=== PATIENT | male | born 1990 | race Caucasian/White ===

== ENCOUNTER 2023-04-13 08:59 | Outpatient (CLI) | payer BC, SELFPAY ==
[2023-04-13 19:00] LABS: Hematocrit 54.1 % (42.0-52.0); Mean Corpuscular HGB Conc 31.4 g/dl (32-36); Platelet Count Result 293 k/mm3 (150-375); Red Blood Count 6.08 M/mm3 (4.6-6.20); Red Cell Distribution Width 13.2 % (11.5-14.5)
[2023-04-13 19:27] LABS: Alanine Aminotransferase 30 U/L (6-50); Albumin Level 4.9 g/dL (3.5-5.1); Alkaline Phosphatase 52 U/L (38-126); Anion Gap 9 mmol/L (8-16); Aspartate Amino Transferase 85 U/L (17-59); Bilirubin,Total 0.8 mg/dL (0.2-1.3); Blood Urea Nitrogen 17 mg/dL (9-20); Calcium 9.5 mg/dL (8.4-10.2); Carbon Dioxide 30 mmol/L (22-30); Chloride 100 mmol/L (98-107); Cholesterol 154 mg/dL (0-200); Estimated Glomerular Filt Rate > 60; Glucose 83 mg/dL (65-110); HDL Direct 38 mg/dL; Potassium 4.7 mmol/L (3.4-5.0); Sodium 139 mmol/L (137-145); Triglycerides 39 mg/dL (<150)
[2023-04-13 19:40] LABS: LDL Cholesterol Direct 91 mg/dL
[2023-04-13 19:47] LABS: Free T4 Free Thyroxine 0.91 ng/mL (0.78-2.19)
[2023-04-16 06:42] LABS: Triiodothyronine T3 Free 3.3 pg/mL (2.3-4.2)
[2023-04-17 11:12] LABS: Testosterone Free 59.4 pg/mL (35.0-155.0); Testosterone Total 391 ng/dL (250-1100)
[2023-04-18 05:05] LABS: Thyroid Peroxidase Antibodies <1 IU/mL (<9)
== END 2023-04-13 09:00 | disposition home or self-care (01) ==
LOC: ANHBWCLAB 09:00
PROVIDERS: PCP Nurse Practitioner Adult Health; Visit Provider Nurse Practitioner Adult Health
DX: L65.9 Nonscarring hair loss, unspecified (principal); Z13.9 Encounter for screening, unspecified
CPT/HCPCS: 36415; 80053; 80061; 84402; 84403; 84439; 84443; 84481; 85027; 86376

== ENCOUNTER 2023-04-20 08:08 | Outpatient (CLI) | payer BC, SELFPAY ==
--- NOTE | ~2023-04-20 | US_ITS ---
EXAMINATION: US thyroid DATE: 04/20/2023 08:39 INDICATION: Nontoxic goiter, unspecified. TECHNIQUE: Multiple ultrasound images of the thyroid were obtained. COMPARISON: None. FINDINGS: The right thyroid lobe measures 5.0 x 1.1 x 1.2 cm. The left thyroid lobe measures 4.5 x 1.6 x 1.4 c m. There is normal echotexture and echogenicity throughout the thyroid gland. No discrete nodules id entified. Normal vascular flow is present. IMPRESSION: 1. Normal thyroid. Reviewed, dictated and finalized at location E. IMPRESSION: 1. Normal thyroid.
== END 2023-04-20 08:09 | disposition home or self-care (01) ==
PROVIDERS: PCP Nurse Practitioner Adult Health; Visit Provider Nurse Practitioner Adult Health
DX: E04.9 Nontoxic goiter, unspecified (principal)
CPT/HCPCS: 76536

== ENCOUNTER 2023-05-18 08:28 | Outpatient (CLI) | payer BC, SELFPAY ==
[2023-05-18 19:22] LABS: Iron 55 ug/dL (49-181)
[2023-05-18 19:33] LABS: Percent Iron Saturation 15 % (20-50)
[2023-05-20 19:33] LABS: ANA Cascade Screen Negative (Negative)
== END 2023-05-18 08:29 | disposition home or self-care (01) ==
LOC: ANHBWCLAB 08:30
PROVIDERS: PCP Nurse Practitioner Adult Health; Visit Provider Nurse Practitioner Adult Health
DX: L65.9 Nonscarring hair loss, unspecified (principal)
CPT/HCPCS: 36415; 82728; 83540; 83550; 86038; 86225; 86235; 86364

== ENCOUNTER 2023-11-17 09:25 | Outpatient (CLI) | payer BC, SELFPAY ==
--- NOTE | ~2023-11-17 | XR_ITS ---
Right foot Technique: AP and lateral views were obtained. Clinical History: Bump under right fourth toe Findings: No acute fracture or dislocation is seen. Osseous alignment is anatomic. Joint spaces are p reserved without erosive or degenerative change. Soft tissues are unremarkable. Impression: Unremarkable right foot radiographs. Reviewed, dictated and finalized at location . Impression: Unremarkable right foot radiographs.
[2023-11-17 19:25] LABS: Basophils Absolute Auto 0.1 K/mm3 (0.0-0.1); Basophils Percent Auto 0.7 % (0.2-1.2); Eosinophils Absolute Auto 0.1 K/mm3 (0-0.3); Eosinophils Percent Auto 1.4 % (0-4.4); Hematocrit 51.3 % (42.0-52.0); Hemoglobin 16.3 g/dL (14.0-18.0); Immature Granulocyte Absolute 0.02 K/mm3 (0.00-0.031); Immature Granulocyte Percent A 0.3 % (0-0.5); Lymphocytes Percent Auto 19.5 % (18.3-44.2); Mean Corpuscular HGB Conc 31.8 g/dl (32-36); Mean Corpuscular Hemoglobin 28.1 pg (26-34); Mean Corpuscular Volume 88.4 fl (80-100); Mean Platelet Volume 10.9 fl (7.4-10.4); Monocytes Absolute Auto 0.7 K/mm3 (0.1-0.6); Monocytes Percent Auto 8.9 % (2.6-8.5); Neutrophils Absolute Auto 5.3 K/mm3 (1.3-6.7); Neutrophils Percent Auto 69.2 % (45.5-73.1); Platelet Count Result 274 k/mm3 (150-375); Red Cell Distribution Width 13.3 % (11.5-14.5); White Blood Count 7.7 K/mm3 (4.5-10.0)
[2023-11-17 20:09] LABS: Iron 56 ug/dL (49-181)
[2023-11-17 20:27] LABS: Alanine Aminotransferase 33 U/L (6-50); Albumin Level 4.6 g/dL (3.5-5.1); Alkaline Phosphatase 56 U/L (38-126); Anion Gap 7 mmol/L (4-12); Aspartate Amino Transferase 73 U/L (17-59); Bilirubin,Total 0.7 mg/dL (0.2-1.3); Blood Urea Nitrogen 19 mg/dL (9-20); Calcium 9.2 mg/dL (8.4-10.2); Carbon Dioxide 29 mmol/L (22-30); Chloride 102 mmol/L (98-107); Estimated Glomerular Filt Rate > 60; Glucose 78 mg/dL (65-110); Potassium 4.4 mmol/L (3.4-5.0); Sodium 138 mmol/L (137-145)
== END 2023-11-17 09:26 | disposition home or self-care (01) ==
LOC: ANHBWCLAB 09:29
PROVIDERS: PCP Nurse Practitioner Adult Health; Visit Provider Nurse Practitioner Adult Health
DX: S90.851A Superficial foreign body, right foot, initial encounter (principal); D64.9 Anemia, unspecified; X58.XXXA Exposure to other specified factors, initial encounter
CPT/HCPCS: 36415; 73620; 80053; 82607; 82728; 83540; 85025

== ENCOUNTER 2024-09-14 15:49 | Emergency (ER) | payer BC, SELFPAY ==
--- NOTE | ~2024-09-14 | XR_ITS ---
EXAMINATION: XR abdomen obstructive series DATE: 09/14/2024 17:04 INDICATION: Left-sided abdominal pain TECHNIQUE: Supine and upright views of the abdomen. FINDINGS: No prior studies for comparison. The visualized lung parenchyma is normal.. There is a bowel gas pattern. Gas and stool are seen throu ghout the colon to the level of the rectum. There is no free air. IMPRESSION: 1. No acute abdominal abnormality. Reviewed, dictated and finalized at location A.
[2024-09-14 15:54] VITALS: BP 128/84; PULSE 93; RESP 20; TEMP 37.6; O2SAT 98
--- NOTE | 2024-09-14 16:09 | ED_ITS ---
HPI - General Adult General Chief complaint: Abdominal Pain Stated complaint: left side pain/chills/diarrhea/nausea Time Seen by Provider: 09/14/24 16:10 Source: patient, RN notes reviewed and old records reviewed Mode of arrival: ambulatory Limitations: no limitations History of Present Illness HPI narrative: 33 year old male presents to [facility] care with complaints of left sided upper abdominal pain for a month and states that since yesterday he has had, chills nausea with vomiting and diarrhea. Patient reports that he has not eaten since yesterday has been drinking some water today. Patient reports that he has felt chilled, flushed, with some body aches also. Patient reports that he has no acute abdominal pain just aching type of sensation to left side of his abdomen. He reports that he has an appointment with his PCP next week. MD complaint: left sided abdominal discomfort,nausea, vomiting diarrhea, chills fevers Onset (ago): day(s) (day 2 of symptoms) Severity: moderate Severity scale (1-10): 7 Quality: aching Pain Consistency: intermittent Treatments prior to arrival: none Related Data Allergies Allergy/AdvReac Type Severity Reaction Status Date / Time morphine Allergy Unknown unknown Verified 09/14/24 16:20 Review of Systems Review of Systems: CONSTITUTIONAL: reports fever, chills, or sweats. EYES: Denies visual changes, redness, or discharge. ENT: Denies rhinorrhea, congestion, sore throat, or otalgia. CARDIOVASCULAR: Denies chest pain, palpitations, or edema. RESPIRATORY: Denies cough or dyspnea. GASTROINTESTINAL:reports left mid abdominal pain, nausea, vomiting, and diarrhea. GENITOURINARY: Denies dysuria or hematuria. SKIN: Denies rash or itching. MUSCULOSKELETAL: Denies back pain, joint pain, positive for body aches NEUROLOGIC: Denies headache, numbness, states feels weak PSYCHIATRIC: Denies anxiety or depression. All systems reviewed & are unremarkable except as noted in HPI and below PMFSH Past Medical History Medical History (Updated 09/17/24 @ 11:29 by Janine Paulino NP) Anemia Family History Family History (Updated 04/13/23 @ 08:27 by Tiffanie Flower MA) Mother Asthma Depression History of ETOH abuse Grandparent Diabetes mellitus Social History Social History (Updated 09/17/24 @ 11:31 by Janine Paulino NP) Smoking status: Former smoker Alcohol intake: former Substance use: current Substance use type: marijuana Last use: former pain pill abuse clean since 2014 Lack of Transportation: No Lack of Food: Never True Current Housing: I Have Housing Concerned About Future Housing: No Difficulty Paying Gas/Electric Bills: No Difficulty Paying for Meds: No Currently Unemployed: No Education: High School Diploma/GED Difficulty w/ Childcare or Family Care: No Living arrangements: alone Gender identity (if verbalized by the patient): Male Comments At time of signature, agree with nursing past medical, surgical, social and family history. There is no relevant family history pertinent to the presenting complaint Exam Narrative: GENERAL: Ill-appearing, well-nourished, and in no acute distress. HEAD: Normocephalic, atraumatic. EYES: PERRLA and EOMI. ENT: Nares clear, no rhinorrhea or epistaxis. Mucous membranes moist.TM's normal throat pink with no swelling or exudates NECK: Supple. no lymphadenopathy CHEST: Clear to auscultation. No respiratory distress. no acute cough or congestion SAO2 98% on room air HEART: Regular rate and rhythm. No murmur heard. Normal peripheral pulses. ABDOMEN: Soft, tender, left mid sided abdomen no rebound or rigidity, nondistended, hyper active bowel sounds, nausea and vomiting episodes with diarrhea. EXTREMITIES: Normal range of motion. No edema. SKIN: Warm, dry, no rash. NEURO: No focal deficits. Alert and oriented x3. Course Course Emergency Course: Patient is aware of diagnosis, understands and agrees to treatment plan.? Anticipatory guidance given.? Patient agrees to follow-up as directed and is aware of reasons to seek care at the emergency department. Portions of this record may have been created with voice recognition software Level of Care: Express Care Visit Vital Signs Vital signs: Vital Signs Temperature 37.6 C 09/14/24 15:54 Pulse Rate 93 09/14/24 15:54 Respiratory Rate 20 09/14/24 15:54 Blood Pressure 128/84 09/14/24 15:54 Pulse Oximetry 98 09/14/24 15:54 Oxygen Delivery Room Air 09/14/24 15:54 Temperature 37.6 C 09/14/24 15:54 Pulse Rate 93 09/14/24 15:54 Respiratory Rate 20 09/14/24 15:54 Blood Pressure 128/84 09/14/24 15:54 Pulse Oximetry 98 09/14/24 15:54 Oxygen Delivery Room Air 09/14/24 15:54 Reviewed Medical Decision Making MDM Narrative Medical decision making narrative: Exam findings and imaging show no acute concerns or changes; patient is non- toxic appearing and is in no distress.? Patient is appropriate for outpatient treatment and follow-up Patient instructed if increase in abdominal pain or symptoms go to ED for fu rther evaluation with understanding voiced. Differential Diagnosis Differential Diagnosis: left sided abdominal discomfort, nausea and vomiting diarrhea, Influenza, viral infection, COVID Medical Records Medical records reviewed: Yes I reviewed the external patient's medical records. Vital Signs Vital Signs: Vital Signs Temperature 37.6 C 09/14/24 15:54 Pulse Rate 93 09/14/24 15:54 Respiratory Rate 20 09/14/24 15:54 Blood Pressure 128/84 09/14/24 15:54 Pulse Oximetry 98 09/14/24 15:54 Oxygen Delivery Room Air 09/14/24 15:54 Temperature 37.6 C 09/14/24 15:54 Pulse Rate 93 09/14/24 15:54 Respiratory Rate 20 09/14/24 15:54 Blood Pressure 128/84 09/14/24 15:54 Pulse Oximetry 98 09/14/24 15:54 Oxygen Delivery Room Air 09/14/24 15:54 reviewed Lab Data Lab results reviewed: Yes I reviewed the patient's lab results. Lab results narrative: influenza A negative, Influenza B positive, COVID antigen negative see urine dip report Labs: Lab Results 09/14/24 09/14/24 Range/Units 16:30 16:47 POC Urine Color Yellow POC Urine Clarity Clear POC Urine pH 5.0 POC Ur Specif [place] 1.030 POC Urine Protein 1+ (Negative) POC Ur Glucose (UA) Negative (Negative) POC Urine Ketones 2+ (Negative) POC Urine Blood Negative (Negative) POC Urine Nitrite Negative (Negative) POC Urine Bilirubin 1+ (Negative) POC Urine Urobilinogen 1.0 POC U Leukocyte Esteras Negative (Negative) POC Influenza A Ag Negative Negative (Negative) POC Influenza B Ag Positive Positive (Negative) POC SARS CoV-2 Ag Negative Negative (Negative) reviewed Imaging Data Attestation: I personally reviewed and interpreted this imaging study as follows: My impression: no free air, no acute abdominal abnormality Radiologist's impression: [facility] [address] [place] [address] XRay Report Signed Patient: Bacilio Lowry : 1990 MR#: [id number] Age: 33 Acct:[id number] Loc: [facility] ADM Date: 09/14/24Attending Dr: Ordering Physician: Janine Paulino APRN Date of Service: 09/14/24 Procedure(s): XR abdomen obstructive series Accession Number(s): [id number] cc: Steve Cintron MD; Janine Paulino APRN~ EXAMINATION: XR abdomen obstructive series DATE: 09/14/2024 17:04 INDICATION: Left-sided abdominal pain TECHNIQUE: Supine and upright views of the abdomen. FINDINGS: No prior studies for comparison. The visualized lung parenchyma is normal.. There is a bowel gas pattern. Gas and stool are seen throughout the colon to the level of the rectum. There is no free air. IMPRESSION: 1. No acute abdominal abnormality. Reviewed, dictated and finalized at location A. Please be advised this is a medical document. It is intended for [id number] communication. It is written in medical language and may contain unfamiliar abbreviations or verbiage. Medical documents are intended to carry relevant information, facts as evident, and the clinical opinion of the practitioner at the time of the encounter. This report may have been done utilizing a voice recognition system. Attempts have been made to correct errors. However, there may be uncorrected grammatical, spelling, and recognition errors present. The file time of this note does not necessarily represent the time of service. Dictated By: Andrade Charles MD 09/14/24 1708 Signed By: <Electronically signed by Andrade Charles MD in OV> Critical Care Time Critical Care Time Critical Care Time: No Discharge Plan Discharge Clinical Impression: Influenza B, Left-sided abdominal pain of unknown etiology, Nausea, vomiting, and diarrhea Patient Disposition: Home, Self-Care Condition: Stable Instructions: Influenza (ED), Acute Nausea and Vomiting (ED), Acute Diarrhea (ED) Additional Instructions: Clear liquids for the next 8-10 hours, then advance to a bland diet as tolerated A bland diet can consist of--BRAT diet which is bananas, rice, applesauce, and toast Avoid fried, greasy, fatty, fried foods Avoid caffeine, nicotine, and alcohol Return to your regular diet in the next 3-4 days Medication as directed for nausea and vomiting Tylenol for fever or pain Follow-up with her PCP if continued problems or uncontrolled pain If your symptoms persist, change or worsen significantly before you can contact your personal physician then please, without delay, go to the emergency department for further evaluation. Follow-up with PCP in 7-10 days or sooner if needed Follow up with PCP soon in regards to your blood pressure which is elevated above threshold for referral. Blood pressure above 120/80 may indicate pre- hypertension. 128/84 You must be fever free for 24 hours without use of Tylenol or ibuprofen before you can return to work. Normally influenza last about 5 days from start of symptoms Delsym or Robitussin cough syrup Patient Language: Beninese Prescriptions: New ondansetron 4 mg tablet,disintegrating 4 mg PO Q6H PRN (Reason: nausea and vomiting) Qty: 14 0RF No Action ferrous sulfate [FeroSul] 325 mg (65 mg iron) tablet See Rx Instructions .ROUTE .COMPLEX Qty: 90 0RF Dose Instruction: TAKE 1 TABLET BY MOUTH DAILY Rx Instructions: TAKE 1 TABLET BY MOUTH DAILY Follow-up/Referrals: Steve Cintron MD [Primary Care Provider] - Stand Alone Forms: Work/School Release IP Time of Disposition: 17:29 Quality [place] Coma Scale Eyes: Open Verbal: Oriented and Alert Motor: Follows Commands [place] Coma Total Score: 15
--- OUTSIDE RECORDS SUMMARY | 2024-09-14 16:22 | XMS_ITS | Clinical Summary ---
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 6.7 Gram 0 Active QUEtiapine (SEROquel) 200 mg tabletIndications :Bipolar disorder, current episode mixed, mild (CMS/HCC) Take 1 Tablet (200 mg) by mouth 2 times daily. 180 Tablet 1 0 Active Active Problems Problem Noted Date Diagnosed Date Bipolar disorder, current episode mixed, mild Family History Medical History Relation Name Comments Diabetes Father No Known Problems Half-Brother 1 No Known Problems Half-Brother 2 No Known Problems Half-Brother 3 Unknown Maternal Grandfather Diabetes Maternal Grandmother Bipolar Disorder Mother COPD Mother Unknown Paternal Grandfather Relation Name Status Comments Father Alive Half-Brother 1 Alive Half-Brother 2 Alive Half-Brother 3 Alive Maternal Grandfather Maternal Grandmother Mother Alive Paternal Grandfather Paternal Grandmother Alive Social History Tobacco Use Types Packs/Day Years Used Date Smoking Tobacco: Former Smokeless Tobacco: Never Alcohol Use Standard Drinks/Week Comments Not Currently 0 (1 standard drink = 0.6 oz pur e alcohol) Sex and Gender Information Value Date Recorded Sex Assigned at Not on file Legal Sex Male 10:06 AM CDT Gender Identity Not on file Sexual Orientation Not on file Last Filed Vital Signs Vital Sign Reading Time Taken Comments Blood Pressure 102/70 01/05/2020 11:33 AM CDT Pulse 95 01/05/2020 11:33 AM CDT Temperature 37.1 C (98.8 F) 01/05/2020 11:33 AM CDT Respiratory Rate 16 01/05/2020 11:33 AM CDT Oxygen Saturation 97% 01/05/2020 11:33 AM CDT Inhaled Oxygen Concentration - - Weight 66.2 kg (146 lb) 01/05/2020 11:33 AM CDT Height 175.3 cm (5' 9 ) 01/05/2020 11:33 AM CDT Body Mass Index 21.56 01/05/2020 11:33 AM CDT Plan of Treatment Health Maintenance Due Date Last Done Comments DTAP/TDAP/TD VACCINES (1 - Tdap) 11/28/2007 HEPATITIS B VACCINES (1 of 3 - 19+ 3-dose series) 11/28/2007 INFLUENZA VACCINE (#1) 2024 HPV VACCINES Aged Out No longer eligi ble based on patient's age to complete this topic PNEUMOCOCCAL VACCINE 0-49 YEARS Aged Out No longer eligible based on patient's age to complete this topic [place] [address] [place] [address] OPT[employer] PPO [id number] * Guarantor: [employer] Account Type Relation to Patient Date of Phone Billing Address Corporate Employer ATTN: MASHA RUIZ [id number] [address] [facility] [employer] PPO [id number]
[2024-09-14 16:40] LABS: EDUAAPPEAR Clear; EDUABILI 1+ (Negative); EDUABLOOD Negative (Negative); EDUACOLOR1 Yellow; EDUAGLUCOSE Negative (Negative); EDUAKETONE 2+ (Negative); EDUALEUKO Negative (Negative); EDUANITRATE Negative (Negative); EDUAPROTEIN 1+ (Negative)
[2024-09-14 16:49] LABS: EDCOVIDSCREEN Negative (Negative); EDINFLUASCREEN Negative (Negative); EDINFLUBSCREEN Positive (Negative)
[2024-09-14 17:03] LABS: EDCOVIDSCREEN Negative (Negative); EDINFLUASCREEN Negative (Negative); EDINFLUBSCREEN Positive (Negative)
== END 2024-09-14 17:30 | disposition home or self-care (01) ==
PROVIDERS: Emergency Provider Registered Nurse; PCP Family Medicine
DX: J10.1 Influenza due to other identified influenza virus with other respiratory manifestations (principal); R10.12 Left upper quadrant pain; R11.2 Nausea with vomiting, unspecified; R19.7 Diarrhea, unspecified; Z20.822 Contact with and (suspected) exposure to COVID-19; Z87.891 Personal history of nicotine dependence; F12.90 Cannabis use, unspecified, uncomplicated; D64.9 Anemia, unspecified
CPT/HCPCS: 74019; 81003; 87426; 87804; 99213; G0463